=== PATIENT | female | born 1995 | race Caucasian/White ===

== ENCOUNTER → 2017-07-04 | Outpatient (CLI) | payer OTHER ==
[~2017-07-04] MED LIST: ADRENACLIC0.15 MG/0. IM; BENADRYL25 MG PO; BIRTH CONTROL; DOXYCYCLINE MO100 MG PO; FAMOTIDINE20 MG PO; KEFLEX PO; MEDROL4 MG/DOSE- PO; NO MEDICATIONS; PRILOSEC40 MG; THORAZINE25 MG; ZOFRAN ODT4 MG PO; ZYRTEC PO
--- NOTE | ~2017-07-04 | US17 ---
[facility] A Service [facility] RADIOLOGY TEXT RESULTS PATIENT: NEL CARPIO LOCATION: [facility] : [birth year] UNIT #: [id number] AGE: [address]: Irasema Fritz MD SEX: F ORDER DR: [id number] [place], [place] [address] [id number] MR#: [id number] Acc #: [id number] NAME: NEL CARPIO : 1995 SEX: F STUDY DATE/TIME: 07/04/2017 14:01 UNIT: [facility] ROOM: STUDY DESCRIPTION: US Breast Bilateral Attending Physician: Irasema Fritz M.D. Referring Physician: Irasema Fritz M.D. Ordering Physician: Irasema Fritz M.D. Primary Care Physician: Irasema Fritz M.D. MEDICAL IMAGING REPORT This report is preliminary unless electronic signature is present EXAM Bilateral diagnostic breast ultrasound DATE: 07/04/2017 HISTORY 22-year-old female with complaints of bilateral breast tenderness for 2 weeks. COMPARISON None. FINDINGS Targeted diagnostic breast ultrasound was performed, as requested. Imaging was targeted to the areas of complaints of pain. Patient denies palpable complaint. The 3-6 o'clock axis of the right breast demonstrates normal fibroglandular tissue without cystic or solid abnormality, architectural distortion of microcalcification. The subareolar left breast and the 3-6 o'clock axes of the left breast demonstrate normal fibroglandular tissue without cystic or solid abnormality, architectural distortion or microcalcification. IMPRESSION BIRADS 1. Negative bilateral diagnostic breast ultrasound. Any further management of the patient's breast pain should be made upon clinical assessment. Otherwise, patient is advised to begin annual screening mammography at the age of 42, sooner if deemed appropriate based upon physical examination findings and family history. The findings and recommendations were discussed with the patient today in the radiology [facility] A Service [facility] RADIOLOGY TEXT RESULTS PATIENT: NEL CARPIO LOCATION: [facility] : [birth year] UNIT #: [id number] AGE: [address]: Irasema Fritz MD SEX: F ORDER DR: department. Dictated by... Amanda Ragsdale M.D. THIS IS AN ELECTRONICALLY VERIFIED REPORT Amanda Ragsdale M.D. at 07/05/2017 8:56 AM FOREIGN/cammie TD: 07/05/2017 00:29 JOB #: [id number] MEDICAL IMAGING REPORT Page 1 of 1 COPY
== END | disposition home or self-care (01) ==
LOC: CWCC 13:38
DX: N64.4 Mastodynia (principal)
CPT/HCPCS: 76641